=== PATIENT | female | born 1980 | race Two or more races ===

== ENCOUNTER 2022-01-05 06:00 | Day surgery (SDC) | payer OTHER ==
[~2022-01-05 06:00] MED LIST: PREVACID15 M1 PO; PRILOSEC10 MG PO
[2022-01-05] MEDS ORDERED: ZOFRAN8 MG PO (08:53)
[2022-01-05] MEDS ORDERED: PERCOCET 5-3251 EACH PO (08:53)
[2022-01-05] MEDS ORDERED: PEPCID AC20 MG PO (08:53)
== END 2022-01-05 13:15 | disposition home or self-care (01) ==
LOC: CIR.AMB 06:00
PROVIDERS: ATTEND Surgery
DX: K81.1 Chronic cholecystitis (principal); Z20.822 Contact with and (suspected) exposure to COVID-19; I95.9 Hypotension, unspecified